=== PATIENT | male | born 1990 | race Caucasian/White ===

== ENCOUNTER 2017-05-10 14:53 | Emergency (ER) | payer BC ==
--- NOTE | ~2017-05-10 | CR243 ---
[facility] A Service of [facility] RADIOLOGY TEXT RESULTS PATIENT: JOSÉ LUIS SILVA LOCATION: SED : [birth year] UNIT #: [id number] AGE: [address]: Kimo Edgar MD SEX: M ORDER DR: [id number] [place] [id number] E MR#: [id number] Acc #: [id number] NAME: JOSÉ LUIS SILVA : 1990 SEX: M STUDY DATE/TIME: 05/10/2017 16:08 UNIT: SED ROOM: STUDY DESCRIPTION: CR Thoracic Spine 3 Views Attending Physician: Kimo Edgar M.D. Ordering Physician: Kimo Edgar M.D. Primary Care Physician: No Primary Care Physician MEDICAL IMAGING REPORT This report is preliminary unless electronic signature is present. EXAM Thoracic series 05/10/2017. INDICATION 26-year-old male with chest pain. Symptoms began 45 minutes to 1 hour prior to arrival. Left-sided back and rib cage pain, short of air, flank and left side pain. No known injury. TECHNIQUE 3 views of the thoracic spine. COMPARISON No comparisons. FINDINGS Cervicothoracic junction intact. There is mild reverse S-shaped scoliosis of the thoracolumbar spine. Vertebral body heights and alignment are preserved. No significant degenerative change. IMPRESSION 1. Scoliosis. No acute fracture or malalignment. Dictated by... Douglas Ruby M.D. THIS IS AN ELECTRONICALLY VERIFIED REPORT Douglas Ruby M.D. at 05/12/2017 3:28 PM JLY/gz TD: 05/11/2017 10:40 JOB #: [id number] [facility] A Service of [facility] RADIOLOGY TEXT RESULTS PATIENT: JOSÉ LUIS SILVA LOCATION: SED : 89 UNIT #: [id number] AGE: [address]: Kimo Edgar MD SEX: M ORDER DR: MEDICAL IMAGING REPORT Page 1 of 1
--- NOTE | ~2017-05-10 | CR181 ---
[facility] A Service [facility] RADIOLOGY TEXT RESULTS PATIENT: JOSÉ LUIS SILVA LOCATION: SED : [birth year] UNIT #: [id number] AGE: [address]: Kimo Edgar MD SEX: M ORDER DR: [id number] [place] [id number] E MR#: [id number] Acc #: [id number] NAME: JOSÉ LUIS SILVA : 1990 SEX: M STUDY DATE/TIME: 05/10/2017 16:08 UNIT: SED ROOM: STUDY DESCRIPTION: CR Lumbar Spine 2 or 3 Views Attending Physician: Kimo Edgar M.D. Ordering Physician: Kimo Edgar M.D. Primary Care Physician: Primary Care Physician No MEDICAL IMAGING REPORT This report is preliminary unless electronic signature is present. EXAM Lumbar series, 05/10/2017 INDICATION 26-year-old male with chest pain that began 45 minutes to 1 hour prior to arrival. Left-sided back and rib cage pain, shortness of air. Flank and left side pain. No known injury. TECHNIQUE 3 views of the lumbar spine. COMPARISON No comparisons. FINDINGS Vertebral body heights and alignment are preserved. Mild degenerative change of the thoracolumbar junction. IMPRESSION Degenerative change of the thoracolumbar junction but no acute fracture or malalignment. Dictated by... Douglas Ruby M.D. THIS IS AN ELECTRONICALLY VERIFIED REPORT Douglas Ruby M.D. at 05/12/2017 3:28 PM [place] TD: 05/11/2017 10:34 JOB #: [id number] [facility] A Service [facility] RADIOLOGY TEXT RESULTS PATIENT: JOSÉ LUIS SILVA LOCATION: SED : [birth year] UNIT #: [id number] AGE: [address]: Kimo Edgar MD SEX: M ORDER DR: MEDICAL IMAGING REPORT Page 1 of 1
--- NOTE | ~2017-05-10 | CR63 ---
[facility] A Service of [facility] RADIOLOGY TEXT RESULTS PATIENT: JOSÉ LUIS SILVA LOCATION: SED : [birth year] UNIT #: [id number] AGE: [address]: Kimo Edgar MD SEX: M ORDER DR: [id number] [place] [id number] E MR#: [id number] Acc #: [id number] NAME: JOSÉ LUIS SILVA : 1990 SEX: M STUDY DATE/TIME: 05/10/2017 15:02 UNIT: SED ROOM: STUDY DESCRIPTION: CR Chest 2 View Attending Physician: Kimo Edgar M.D. Ordering Physician: Kimo Edgar M.D. Primary Care Physician: No Primary Care Physician MEDICAL IMAGING REPORT This report is preliminary unless electronic signature is present. EXAM Two-view chest, 05/10/2017. INDICATIONS 26-year-old male with chest pain that began 45 minutes to 1 hour prior to arrival. Left-sided back above rib cage pain, shortness of air. Chest congestion, congestion. TECHNIQUE Two-view chest compared with 12/31/2007. FINDINGS Cardiac silhouette within normal limits. Vascularity normal. Lungs clear. No pneumothorax or effusion. IMPRESSION 1. Negative chest. No change. Dictated by... Douglas Ruby M.D. THIS IS AN ELECTRONICALLY VERIFIED REPORT Douglas Ruby M.D. at 05/12/2017 3:28 PM [place] TD: 05/11/2017 09:26 JOB #: [id number] MEDICAL IMAGING REPORT Page 1 of 1
[~2017-05-10 14:53] MED LIST: BENTYL20 MG PO; NO MEDICATIONS; PRILOSEC20 MG PO; TYLENOL #3 PO
[2017-05-10 17:56] LABS: URINE SOURCE CLEAN CATCH
[2017-05-10 17:59] LABS: URINE APPEARANCE CLEAR; URINE BILIRUBIN NEG (NEG); URINE BLOOD NEG (NEG); URINE COLOR YELLOW; URINE GLUCOSE NEG (NORM); URINE KETONE NEG (NEG); URINE LEUKOCYTE ESTERASE NEG (NEG); URINE NITRATE NEG (NEG); URINE PROTEIN NEG (NEG); URINE UROBILINOGEN 0.2 MG/DL (NORM)
[2017-05-10 18:00] LABS: MICRO INDICATED? NO
== END 2017-05-10 18:22 | disposition home or self-care (01) ==
LOC: SED 14:53
PROVIDERS: Emergency Medicine
DX: S39.012A Strain of muscle, fascia and tendon of lower back, initial encounter (principal); F90.9 Attention-deficit hyperactivity disorder, unspecified type; F17.200 Nicotine dependence, unspecified, uncomplicated; X58.XXXA Exposure to other specified factors, initial encounter
CPT/HCPCS: 71020; 72072; 72100; 81003; 96372; 99284; J1170; J1885